=== PATIENT | male | born 1950 | race Caucasian/White ===

== ENCOUNTER 2018-04-04 13:36 | Emergency (ER) | payer OTHER, MEDICARE ==
[~2018-04-04] VITALS: Ht 170.2 cm; Wt 84.1 kg
[2018-04-04 13:44] VITALS: BP 121/64; Ht 170.2 cm; Wt 84.1 kg
[2018-04-04] MEDS ORDERED: GLUCOTROL ER2.5 MG (13:46)
[2018-04-04] MEDS ORDERED: NOVOLOG100 UNIT/1 (13:46)
[2018-04-04] MEDS ORDERED: COREG12.5 MG (13:46)
[2018-04-04] MEDS ORDERED: LIPITOR20 MG (13:46)
[2018-04-04] MEDS ORDERED: BAYER CHEWABLE81 MG (13:46)
[2018-04-04] MEDS ORDERED: ZOLOFT25 MG (13:47)
[2018-04-04] MEDS ORDERED: METFORMIN HCL500 M1 (13:47)
[2018-04-04] MEDS ORDERED: OMEPRAZOLE20 M1 (13:47)
== END 2018-04-04 17:00 | disposition home or self-care (01) ==
LOC: D.ER 13:36
DX: S16.1XXA Strain of muscle, fascia and tendon at neck level, initial encounter (principal); V43.62XA Car passenger injured in collision with other type car in traffic accident, initial encounter; Y93.89 Activity, other specified; Y92.410 Unspecified street and highway as the place of occurrence of the external cause